=== PATIENT | male | born 1965 | race Caucasian/White ===

== ENCOUNTER 2022-04-08 06:42 | Emergency (ER) | payer SELFPAY ==
[2022-04-08] MEDS ORDERED: methylPREDNISolone Sod Succ/PF 125 MG/2 ML VIAL ONE (07:18)
== END 2022-04-08 07:37 | disposition home or self-care (01) ==
LOC: MADERS 06:42
DX: M25.551 Pain in right hip (principal); I10 Essential (primary) hypertension; M19.90 Unspecified osteoarthritis, unspecified site; F17.210 Nicotine dependence, cigarettes, uncomplicated; F17.220 Nicotine dependence, chewing tobacco, uncomplicated; Z79.899 Other long term (current) drug therapy
CPT/HCPCS: 96372; 99283; J2930

== ENCOUNTER 2022-04-29 17:19 | Outpatient (CLI) | payer SELFPAY | END 2022-04-29 17:20 | disposition home or self-care (01) | LOC: MADRAD 17:19 | PROVIDERS: ATTEND Family Medicine | DX: M25.551 Pain in right hip (principal) ==